=== PATIENT | female | born 1930 | race Caucasian/White ===

== ENCOUNTER 2018-08-30 15:53 | Emergency (ER) | payer MEDICARE, BC ==
[2018-08-30 16:06] VITALS: RESP 18
[2018-08-30] MEDS ORDERED: FUROSEMIDE 10 MG/ML 2 ML VIAL IV STA (17:22)
--- NOTE | 2018-08-30 17:41 | ED ---
General Adult HPI - General Chief complaint: Skin/Abscess/Foreign Body Stated complaint: FLUID RETENTION, POSS AFIB Time Seen by Provider: 08/30/18 16:05 Source: patient, RN notes reviewed Mode of arrival: wheelchair Limitations: physical limitation - History of Present Illness Initial comments: This is a 63-year-old female presents emergency Department complaining of increased edema to her bilateral legs and a slight rash at the sock line and bilateral legs. The rash does not itch is no vesicles it's not raised. Patient states she's been put on Lasix 10 mg daily a few days ago but has noticed no decrease in fluid retention. Patient denies any difficulty breathing shortness of breath or chest pain. Patient denies any fever chills or cough. Patient states she does have a history of atrial fibrillation. Patient denies any abdominal pain she's nausea vomiting diarrhea. Patient denies any calf tenderness. Patient thinks the bilateral rash could be shingles and that is why she came in. - Related Data Home Medications Medication Instructions Recorded Confirmed Apixaban [Eliquis] 2.5 mg PO BID 08/30/18 08/30/18 DULoxetine HCL [Cymbalta] 20 mg PO HS 08/30/18 08/30/18 Diltiazem HCl [Cartia Xt] 180 mg PO DAILY 08/30/18 08/30/18 Furosemide [Lasix] 20 mg PO DAILY PRN 08/30/18 08/30/18 LORazepam [Ativan] 0.25 mg PO Q8H PRN 08/30/18 08/30/18 Labetalol [Trandate] 100 mg PO Q8H 08/30/18 08/30/18 Latanoprost [Xalatan 0.005%] 1 drop BOTH EYES 08/30/18 08/30/18 levETIRAcetam [Keppra] 500 mg PO BID 08/30/18 08/30/18 Allergies Allergy/AdvReac Type Severity Reaction Status Date / Time latex Allergy Unknown Verified 08/30/18 16:56 Sulfa (Sulfonamide Allergy Unknown Verified 08/30/18 16:56 Antibiotics) tetanus and diphtheria Allergy Unknown Verified 08/30/18 16:56 toxoids Review of Systems ROS Statement: Those systems with pertinent positive or pertinent negative responses have been documented in the HPI. ROS Other: All systems not noted in ROS Statement are negative. Past Medical History Past Medical History: Atrial Fibrillation, Hyperlipidemia, Hypertension History of Any Multi-Drug Resistant Organisms: None Reported Past Surgical History: Appendectomy, Section, Hysterectomy Past Psychological History: No Psychological Hx Reported Smoking Status: Never smoker Past Alcohol Use History: None Reported Past Drug Use History: None Reported General Exam - General Exam Comments Initial Comments: GENERAL: Patient is well-developed and well-nourished. Patient is nontoxic and well- hydrated and is in no acute distress. ENT: Neck is soft and supple. No significant lymphadenopathy is noted. Neck has full range of motion without eliciting any pain. EYES: The sclera were anicteric and conjunctiva were pink and moist. Extraocular movements were intact and pupils were equal round and reactive to light. Eyelids were unremarkable. PULMONARY: Unlabored respirations. Good breath sounds bilaterally. No audible rales rhonchi or wheezing was noted. CARDIOVASCULAR: There is a regular rate and rhythm without any murmurs gallops or rubs. ABDOMEN: Soft and nontender with normal bowel sounds. SKIN: Skin is clear with no lesions or rashes and otherwise unremarkable. NEUROLOGIC: Patient is alert and oriented x3. Cranial nerves II through XII are grossly intact. Motor and sensory are also intact. Normal speech, volume and content. Symmetrical smile. MUSCULOSKELETAL: Normal extremities with adequate strength and full range of motion. Patient has 2+ edema bilaterally there is a slight rash on both ankles at the sock line it is flat and it does not orestes it's more typical of some petechiae. LYMPHATICS: No significant lymphadenopathy is noted PSYCHIATRIC: Normal psychiatric evaluation. Limitations: physical limitation Course Vital Signs 08/30/18 08/30/18 16:03 18:37 Temperature 98.4 F Pulse Rate 104 H 98 Respiratory 18 18 Rate Blood Pressure 141/72 168/90 O2 Sat by Pulse 99 98 Oximetry Medical Decision Making - Medical Decision Making EKG shows atrial fibrillation with rapid ventricular response at 106 bpm QRS 110 QT interval 372 QTC is 494. Patient's EKG shows no ST segment elevation however there is some ST segment depression in V5 and V6. Patient's chest x-ray shows a little cephalization. Possibly early pulmonary edema. However patient has no complaint of difficulty breathing even with exertion. Patient's heart rate during the patient's stay has been between 90 and 110 patient denies any shortness of breath chest pain or palpitations. - Lab Data Result diagrams: 08/30/18 17:40 08/30/18 17:40 Lab Results 08/30/18 08/30/18 08/30/18 Range/Units 17:40 17:40 17:40 WBC 7.3 (3.8-10.6) k/uL RBC 3.88 (3.80-5.40) m/uL Hgb 11.3 L (11.4-16.0) gm/dL Hct 34.6 (34.0-46.0) % MCV 89.1 (80.0-100.0) fL MCH 29.1 (25.0-35.0) pg MCHC 32.6 (31.0-37.0) g/dL RDW 13.6 (11.5-15.5) % Plt Count 225 (150-450) k/uL Neutrophils % 61 % Lymphocytes % 24 % Monocytes % 8 % Eosinophils % 3 % Basophils % 1 % Neutrophils # 4.4 (1.3-7.7) k/uL Lymphocytes # 1.8 (1.0-4.8) k/uL Monocytes # 0.6 (0-1.0) k/uL Eosinophils # 0.2 (0-0.7) k/uL Basophils # 0.0 (0-0.2) k/uL PT (9.0-12.0) sec INR (<1.2) APTT (22.0-30.0) sec Sodium 138 (137-145) mmol/L Potassium 3.9 (3.5-5.1) mmol/L Chloride 106 (98-107) mmol/L Carbon Dioxide 22 (22-30) mmol/L Anion Gap 10 mmol/L BUN 19 H (7-17) mg/dL Creatinine 0.66 (0.52-1.04) mg/dL Est GFR (CKD-EPI)AfAm >90 (>60 ml/min/1.73 sqM) Est GFR (CKD-EPI)NonAf 80 (>60 ml/min/1.73 sqM) Glucose 102 H (74-99) mg/dL Calcium 9.6 (8.4-10.2) mg/dL Magnesium 1.9 (1.6-2.3) mg/dL Total Bilirubin 0.7 (0.2-1.3) mg/dL AST 29 (14-36) U/L ALT 40 (9-52) U/L Alkaline Phosphatase 123 (38-126) U/L Total Creatine Kinase 83 (30-135) U/L CK-MB (CK-2) 1.4 (0.0-2.4) ng/mL CK-MB (CK-2) Rel Index 1.7 Troponin I <0.012 (0.000-0.034) ng/mL NT-Pro-B Natriuret Pep pg/mL Total Protein 6.9 (6.3-8.2) g/dL Albumin 4.0 (3.5-5.0) g/dL 08/30/18 08/30/18 Range/Units 17:40 17:40 WBC (3.8-10.6) k/uL RBC (3.80-5.40) m/uL Hgb (11.4-16.0) gm/dL Hct (34.0-46.0) % MCV (80.0-100.0) fL MCH (25.0-35.0) pg MCHC (31.0-37.0) g/dL RDW (11.5-15.5) % Plt Count (150-450) k/uL Neutrophils % % Lymphocytes % % Monocytes % % Eosinophils % % Basophils % % Neutrophils # (1.3-7.7) k/uL Lymphocytes # (1.0-4.8) k/uL Monocytes # (0-1.0) k/uL Eosinophils # (0-0.7) k/uL Basophils # (0-0.2) k/uL PT 10.6 (9.0-12.0) sec INR 1.0 (<1.2) APTT 25.2 (22.0-30.0) sec Sodium (137-145) mmol/L Potassium (3.5-5.1) mmol/L Chloride (98-107) mmol/L Carbon Dioxide (22-30) mmol/L Anion Gap mmol/L BUN (7-17) mg/dL Creatinine (0.52-1.04) mg/dL Est GFR (CKD-EPI)AfAm (>60 ml/min/1.73 sqM) Est GFR (CKD-EPI)NonAf (>60 ml/min/1.73 sqM) Glucose (74-99) mg/dL Calcium (8.4-10.2) mg/dL Magnesium (1.6-2.3) mg/dL Total Bilirubin (0.2-1.3) mg/dL AST (14-36) U/L ALT (9-52) U/L Alkaline Phosphatase (38-126) U/L Total Creatine Kinase (30-135) U/L CK-MB (CK-2) (0.0-2.4) ng/mL CK-MB (CK-2) Rel Index Troponin I (0.000-0.034) ng/mL NT-Pro-B Natriuret Pep 2120 pg/mL Total Protein (6.3-8.2) g/dL Albumin (3.5-5.0) g/dL Disposition Clinical Impression: Peripheral edema Disposition: HOME SELF-CARE Condition: Good Instructions: Leg Edema (ED) Additional Instructions: Patient should start taking Lasix 20 mg in the morning patient needs to follow- up with her primary medical care doctor. Is patient prescribed a controlled substance at d/c from ED?: No Referrals: Timmy Yeager MD [Primary Care Provider] - 1-2 days
[2018-08-30 18:06] LABS: Basophils % (A) 1 %; Eosinophils # (A) 0.2 k/uL (0-0.7); Eosinophils % (A) 3 %; HCT 34.6 % (34.0-46.0); HGB 11.3 gm/dL (11.4-16.0); Lymphocytes # (A) 1.8 k/uL (1.0-4.8); Lymphocytes % (A) 24 %; MCH 29.1 pg (25.0-35.0); MCHC 32.6 g/dL (31.0-37.0); MCV 89.1 fL (80.0-100.0); Mean Platelet Volume 7.4; Monocytes # (A) 0.6 k/uL (0-1.0); Monocytes % (A) 8 %; Neutrophils # (A) 4.4 k/uL (1.3-7.7); Neutrophils % (A) 61 %; Platelet Count 225 k/uL (150-450); RBC 3.88 m/uL (3.80-5.40); RDW 13.6 % (11.5-15.5); WBC 7.3 k/uL (3.8-10.6)
[2018-08-30 18:18] LABS: Partial Thromboplastin Time 25.2 sec (22.0-30.0); Prothrombin Time 10.6 sec (9.0-12.0)
[2018-08-30 18:25] LABS: Creatine Kinase 83 U/L (30-135)
[2018-08-30 18:27] LABS: ALT 40 U/L (9-52); AST 29 U/L (14-36); Alkaline Phosphatase 123 U/L (38-126); Anion Gap 10 mmol/L; Blood Urea Nitrogen 19 mg/dL (7-17); Calcium 9.6 mg/dL (8.4-10.2); Carbon Dioxide 22 mmol/L (22-30); Chloride 106 mmol/L (98-107); Glucose 102 mg/dL (74-99); Magnesium 1.9 mg/dL (1.6-2.3); Potassium 3.9 mmol/L (3.5-5.1); Sodium 138 mmol/L (137-145); Total Bilirubin 0.7 mg/dL (0.2-1.3); Total Protein 6.9 g/dL (6.3-8.2)
[2018-08-30 18:37] LABS: Creatine Kinase MB 1.4 ng/mL (0.0-2.4); Troponin I <0.012 ng/mL (0.000-0.034)
--- NOTE | 2018-08-30 20:00 | XR ---
EXAMINATION: XR chest 2V DATE AND TIME: 08/30/2018 6:12 PM CLINICAL INDICATION: PHH; Chest Pain TECHNIQUE: Departmental protocol COMPARISON: None FINDINGS: The lungs show a reticular pattern of increased density throughout the lungs which mildly silhouettes the pulmonary vasculature. This suggests a clinical possibility of mild interstitial phase pulmonary edema. If not present clinically, then the pattern likely represents chronic interstitial lung peacock e. The pleural spaces are positive for a very small right pleural effusion. The cardiac silhouette is moderately enlarged. The remainder of the mediastinal silhouette is unremar kable. The skeletal structures and soft tissues are negative for acute findings. IMPRESSION: NO DEFINITE ACUTE PROCESS, BUT PULMONARY COMMENTS ABOVE.
[2018-08-30 20:27] VITALS: BP 149/87; PULSE 110; TEMP 98.6
== END 2018-08-30 20:27 | disposition home or self-care (01) ==
LOC: EC 15:53
DX: R60.0 Localized edema (principal); R21 Rash and other nonspecific skin eruption; I48.91 Unspecified atrial fibrillation; I10 Essential (primary) hypertension; Z79.01 Long term (current) use of anticoagulants; Z79.899 Other long term (current) drug therapy; Z91.040 Latex allergy status; Z88.2 Allergy status to sulfonamides; Z88.7 Allergy status to serum and vaccine
CPT/HCPCS: 36415; 93005; 83880; 80053; 82550; 82553; 83735; 84484; 85025; 85610; 85730; 71046; 99284; 96374; J1940

== ENCOUNTER 2018-11-25 14:07 | Inpatient (IN) | payer MEDICARE, BC ==
[2018-11-25] MEDS ORDERED: SODIUM CHLORIDE 0.9% 500 ML 500 ML IV ONE ×2 (14:26→15:30)
--- NOTE | 2018-11-25 14:28 | ED ---
General Adult HPI - General Chief complaint: Weakness Stated complaint: Weakness Time Seen by Provider: 11/25/18 14:12 Source: patient, EMS, RN notes reviewed, old records reviewed Mode of arrival: EMS Limitations: no limitations - History of Present Illness Initial comments: 32 sexual female presenting with generalized weakness from home. Patient states she was trying to get into the shower, she slipped from her chair and injured her left shoulder. She was unable to ambulate after this fall secondary to generalized weakness. She has previous history of intracranial hemorrhage, atrial fibrillation. Denies head or neck trauma. Denies any chest pain or dyspnea. She does report palpitations and racing heart. Denies abdominal pain nausea or vomiting. Denies fever. Denies dysuria but does report increased urinary frequency. - Related Data Home Medications Medication Instructions Recorded Confirmed Apixaban [Eliquis] 2.5 mg PO BID 08/30/18 11/25/18 Diltiazem HCl [Cartia Xt] 180 mg PO DAILY 08/30/18 11/25/18 Furosemide [Lasix] 40 mg PO DAILY 08/30/18 11/25/18 Labetalol [Trandate] 100 mg PO Q8H 08/30/18 11/25/18 levETIRAcetam [Keppra] 500 mg PO BID 08/30/18 11/25/18 Primidone [Mysoline] 50 mg PO BID 11/25/18 11/25/18 Allergies Allergy/AdvReac Type Severity Reaction Status Date / Time latex Allergy Unknown Verified 11/25/18 15:06 Sulfa (Sulfonamide Allergy Unknown Verified 11/25/18 15:06 Antibiotics) tetanus and diphtheria Allergy Unknown Verified 11/25/18 15:06 toxoids Review of Systems ROS Statement: Those systems with pertinent positive or pertinent negative responses have been documented in the HPI. ROS Other: All systems not noted in ROS Statement are negative. Past Medical History Past Medical History: Atrial Fibrillation, CVA/TIA, Hyperlipidemia, Hypertension History of Any Multi-Drug Resistant Organisms: None Reported Past Surgical History: Appendectomy, Section, Hysterectomy Past Psychological History: No Psychological Hx Reported Smoking Status: Never smoker Past Alcohol Use History: None Reported Past Drug Use History: None Reported General Exam Limitations: no limitations General appearance: alert, in no apparent distress Head exam: Present: atraumatic, normocephalic Eye exam: Present: normal appearance ENT exam: Present: mucous membranes dry Neck exam: Present: normal inspection. Absent: tenderness, meningismus Respiratory exam: Present: normal lung sounds bilaterally. Absent: respiratory distress, wheezes Cardiovascular Exam: Present: tachycardia, irregular rhythm GI/Abdominal exam: Present: soft. Absent: distended, tenderness, guarding Extremities exam: Present: full ROM, tenderness (Left shoulder, hematoma) Neurological exam: Present: alert, oriented X3, CN II-XII intact. Absent: motor sensory deficit Psychiatric exam: Present: normal affect, normal mood Skin exam: Present: warm, dry, intact. Absent: cyanosis, diaphoretic Course Vital Signs 11/25/18 11/25/18 14:09 15:53 Temperature 98.8 F Pulse Rate 131 H 105 H Respiratory 20 16 Rate Blood Pressure 124/91 114/91 O2 Sat by Pulse 92 L 95 Oximetry EKG Findings - EKG Comments: EKG Findings:: EKG: Atrial fibrillation with RVR, left extremity deviation, LVH, rate of 123, QRS duration 110, QTC 501, no ST segment elevation, ST segment depression in the lateral precordium. Medical Decision Making - Medical Decision Making 88-year-old female presenting with generalized weakness, fall with minor shoulder injury. Patient is found to be in A. fib with a rapid ventricular response, she does have history of atrial fibrillation. Workup reveals normal CBC, normal CMP, normal lactic acid, urinalysis shows 1+ ketones consistent with dehydration and exam findings. Suspect atrial fibrillation is related to dehydration. 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 Chest x-ray shows COPD no focal pneumonia. Patient's given IV hydration, this does improve her heart rate. She is in rate controlled A. fib on reevaluation. She will be admitted for further evaluation treatment. Case discussed with Dr. Davis, will admit. - Lab Data Result diagrams: 11/25/18 14:16 11/25/18 14:16 Lab Results 11/25/18 11/25/18 11/25/18 Range/Units 14:16 14:16 14:16 WBC 9.6 (3.8-10.6) k/uL RBC 4.52 (3.80-5.40) m/uL Hgb 12.3 (11.4-16.0) gm/dL Hct 37.7 (34.0-46.0) % MCV 83.6 (80.0-100.0) fL MCH 27.3 (25.0-35.0) pg MCHC 32.6 (31.0-37.0) g/dL RDW 15.7 H (11.5-15.5) % Plt Count 214 (150-450) k/uL Neutrophils % 84 % Lymphocytes % 10 % Monocytes % 5 % Eosinophils % 1 % Basophils % 0 % Neutrophils # 8.0 H (1.3-7.7) k/uL Lymphocytes # 0.9 L (1.0-4.8) k/uL Monocytes # 0.5 (0-1.0) k/uL Eosinophils # 0.1 (0-0.7) k/uL Basophils # 0.0 (0-0.2) k/uL PT 10.5 (9.0-12.0) sec INR 1.0 (<1.2) APTT 23.0 (22.0-30.0) sec Sodium 139 (137-145) mmol/L Potassium 4.3 (3.5-5.1) mmol/L Chloride 105 (98-107) mmol/L Carbon Dioxide 24 (22-30) mmol/L Anion Gap 10 mmol/L BUN 19 H (7-17) mg/dL Creatinine 0.57 (0.52-1.04) mg/dL Est GFR (CKD-EPI)AfAm >90 (>60 ml/min/1.73 sqM) Est GFR (CKD-EPI)NonAf 84 (>60 ml/min/1.73 sqM) Glucose 113 H (74-99) mg/dL Plasma Lactic Acid Robert (0.7-2.0) mmol/L Calcium 9.9 (8.4-10.2) mg/dL Magnesium 1.9 (1.6-2.3) mg/dL Total Bilirubin 0.8 (0.2-1.3) mg/dL AST 25 (14-36) U/L ALT 36 (9-52) U/L Alkaline Phosphatase 104 (38-126) U/L Creatine Kinase 68 (30-135) U/L Troponin I (0.000-0.034) ng/mL Total Protein 6.8 (6.3-8.2) g/dL Albumin 3.9 (3.5-5.0) g/dL Urine Color Urine Appearance (Clear) Urine pH (5.0-8.0) Ur Specific [place] (1.001-1.035) Urine Protein (Negative) Urine Glucose (UA) (Negative) Urine Ketones (Negative) Urine Blood (Negative) Urine Nitrite (Negative) Urine Bilirubin (Negative) Urine Urobilinogen (<2.0) mg/dL Ur Leukocyte Esterase (Negative) 11/25/18 11/25/18 11/25/18 Range/Units 14:16 14:16 15:51 WBC (3.8-10.6) k/uL RBC (3.80-5.40) m/uL Hgb (11.4-16.0) gm/dL Hct (34.0-46.0) % MCV (80.0-100.0) fL MCH (25.0-35.0) pg MCHC (31.0-37.0) g/dL RDW (11.5-15.5) % Plt Count (150-450) k/uL Neutrophils % % Lymphocytes % % Monocytes % % Eosinophils % % Basophils % % Neutrophils # (1.3-7.7) k/uL Lymphocytes # (1.0-4.8) k/uL Monocytes # (0-1.0) k/uL Eosinophils # (0-0.7) k/uL Basophils # (0-0.2) k/uL PT (9.0-12.0) sec INR (<1.2) APTT (22.0-30.0) sec Sodium (137-145) mmol/L Potassium (3.5-5.1) mmol/L Chloride (98-107) mmol/L Carbon Dioxide (22-30) mmol/L Anion Gap mmol/L BUN (7-17) mg/dL Creatinine (0.52-1.04) mg/dL Est GFR (CKD-EPI)AfAm (>60 ml/min/1.73 sqM) Est GFR (CKD-EPI)NonAf (>60 ml/min/1.73 sqM) Glucose (74-99) mg/dL Plasma Lactic Acid Robert 1.4 (0.7-2.0) mmol/L Calcium (8.4-10.2) mg/dL Magnesium (1.6-2.3) mg/dL Total Bilirubin (0.2-1.3) mg/dL AST (14-36) U/L ALT (9-52) U/L Alkaline Phosphatase (38-126) U/L Creatine Kinase (30-135) U/L Troponin I 0.014 (0.000-0.034) ng/mL Total Protein (6.3-8.2) g/dL Albumin (3.5-5.0) g/dL Urine Color Yellow Urine Appearance Clear (Clear) Urine pH 7.0 (5.0-8.0) Ur Specific [place] 1.014 (1.001-1.035) Urine Protein Negative (Negative) Urine Glucose (UA) Negative (Negative) Urine Ketones 1+ H (Negative) Urine Blood Negative (Negative) Urine Nitrite Negative (Negative) Urine Bilirubin Negative (Negative) Urine Urobilinogen <2.0 (<2.0) mg/dL Ur Leukocyte Esterase Negative (Negative) Disposition Clinical Impression: Dehydration, Atrial fibrillation with RVR, General weakness Disposition: ADMITTED IP TO THIS [facility] Condition: Stable Is patient prescribed a controlled substance at d/c from ED?: No Referrals: Timmy Yeager MD [Primary Care Provider] - 1-2 days Decision to Admit Reason: Admit from EC Decision Date: 11/25/18 Decision Time: 16:48
[2018-11-25 14:54] LABS: Basophils % (A) 0 %; Eosinophils # (A) 0.1 k/uL (0-0.7); Eosinophils % (A) 1 %; HCT 37.7 % (34.0-46.0); HGB 12.3 gm/dL (11.4-16.0); Lymphocytes # (A) 0.9 k/uL (1.0-4.8); Lymphocytes % (A) 10 %; MCH 27.3 pg (25.0-35.0); MCHC 32.6 g/dL (31.0-37.0); MCV 83.6 fL (80.0-100.0); Mean Platelet Volume 9.1; Monocytes # (A) 0.5 k/uL (0-1.0); Monocytes % (A) 5 %; Neutrophils % (A) 84 %; Platelet Count 214 k/uL (150-450); RBC 4.52 m/uL (3.80-5.40); RDW 15.7 % (11.5-15.5); WBC 9.6 k/uL (3.8-10.6)
[2018-11-25 15:05] LABS: ALT 36 U/L (9-52); AST 25 U/L (14-36); Albumin 3.9 g/dL (3.5-5.0); Alkaline Phosphatase 104 U/L (38-126); Anion Gap 10 mmol/L; Blood Urea Nitrogen 19 mg/dL (7-17); Calcium 9.9 mg/dL (8.4-10.2); Carbon Dioxide 24 mmol/L (22-30); Chloride 105 mmol/L (98-107); Creatine Kinase 68 U/L (30-135); Glucose 113 mg/dL (74-99); Magnesium 1.9 mg/dL (1.6-2.3); Potassium 4.3 mmol/L (3.5-5.1); Sodium 139 mmol/L (137-145); Total Bilirubin 0.8 mg/dL (0.2-1.3); Total Protein 6.8 g/dL (6.3-8.2)
[2018-11-25 15:07] LABS: Prothrombin Time 10.5 sec (9.0-12.0)
--- NOTE | 2018-11-25 15:23 | XR ---
EXAMINATION TYPE: XR chest 2V DATE OF EXAM: 11/25/2018 COMPARISON: 08/30/2018 TECHNIQUE: PA and lateral views submitted. HISTORY: Pain FINDINGS: Hyperinflation the lungs are seen with biapical pleural thickening and degenerative change spine. The heart is enlarged. Coarsened interstitium is stable. No pneumothorax or pleural effusion. IMPRESSION: 1. 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 Biapical pleural thickening stable.
--- NOTE | 2018-11-25 15:24 | XR ---
EXAMINATION TYPE: XR shoulder complete LT DATE OF EXAM: 11/25/2018 COMPARISON: NONE HISTORY: Pain TECHNIQUE: Three views are submitted. FINDINGS: The osseous structures are intact. There is no acute fracture or dislocation. The AC joint is maint ained. Diffuse osteopenia and left apical pleural thickening. IMPRESSION: 1. No acute process.
--- NOTE | 2018-11-25 15:26 | CT ---
EXAMINATION TYPE: CT brain kulwinder wo con DATE OF EXAM: 11/25/2018 COMPARISON: Weakness, fall HISTORY: Weakness. Fall. CT DLP: 1221.3 mGycm, Automated exposure control for dose reduction was used. CONTRAST: Patient injected with 0 mL of Isovue 300. CT of the brain is performed utilizing 3 mm thick sections through the posterior fossa and 3 mm thick sections through the remaining calvarium. Study is performed within 24 hours of arrival to the hospital. No abnormal hyperdensity is present to suggest an acute intracranial hemorrhage. No mass lesion is evident. No acute infarcts are evident. There may be an old infarct through the right occipital lobe. Some mi ld periventricular white matter hypodensity, likely on the basis of chronic white matters. Ventricles and sulci are appropriate for the patient age. There is a hypodense area within the left cerebellar pontine angle likely is an arachnoid cyst. Paranasal sinuses and mastoid air cells within the [id number] are clear. IMPRESSIONS: 1. Old right occipital lobe infarct. 2. 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 Old infarct could be considered. 3. Right ventricular white matter ischemic type changes. CT cervical spine. COMPARISON: None CT of the cervical spine is performed in the axial plane at 2 mm thick sections. Reconstructed image s in the coronal, and sagittal plane are reviewed on the computer. No acute fractures are evident. Vertebral body alignment is normal. Posterior spinal lamellar line is intact. There is some posterior disc space narrowing present C5-6 C6-7. Vertebral body heights are preserved. No spinal canal stenosis is evident. No neural foraminal stenosis is evident. Bilateral apical thickening likely related to scarring is present. IMPRESSIONS: 1. No acute osseous abnormality. 2. Mild degenerative disc changes posterior lower cervical spine.
[2018-11-25] MEDS: SODIUM CHLORIDE 0.9% 1,000 ML IV SCH (15:40)
[2018-11-25 16:14] LABS: Appearance,Urine Clear (Clear); Bilirubin,Urine Negative (Negative); Blood,Urine Negative (Negative); Color,Urine Yellow; Glucose,Urine (UA) Negative (Negative); Ketones,Urine 1+ (Negative); Leukocyte Esterase,Urine Negative (Negative); Nitrite,Urine Negative (Negative); Protein,Urine Negative (Negative); Specific Gravity,Urine 1.014 (1.001-1.035); Urobilinogen,Urine <2.0 mg/dL (<2.0)
[2018-11-25] MEDS ORDERED: NALOXONE 0.4 MG/ML 1 ML VIAL IV PRN (16:44)
[2018-11-25] MEDS ORDERED: ACETAMINOPHEN TAB 325 MG TAB PO PRN (16:44)
[2018-11-25] MEDS ORDERED: LORazepam 2 MG/ML INJ IV STA (17:29)
[2018-11-25] MEDS: LABETALOL 100 MG TAB PO SCH ×2 (19:29→19:30)
--- NOTE | 2018-11-25 23:06 | P.HPIM ---
History of Present Illness H&P Date: 11/25/18 Chief Complaint: Fall. 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 Patient was trying to get into changed and slipped to the side of chair and stayed there for an hour. Patient did have some bruise on the left shoulder and arm. Patient was unable to get up due to generalized weakness and finally was able to call EMS. Patient does have a history of CVA 2. Most recent was in March 2018. Patient does have tremors of the upper and lower extremities, left side since then. Patient does take labetalol for blood pressure. Patient is also on seizure medications at home. Otherwise patient denied any recent illnesses. No fever no chills. No cough or sputum production. No dysuria or hematuria. Denied any increased urinary frequency. Denied any abdominal pain. No nausea vomiting or diarrhea. Denied any chest pain or shortness of breath or dizziness. Patient was found to be in atrial fibrillation with RVR on admission. UA negative. BUN 19 on admission Review of Systems Constitutional: Patient denies any fever or chills . Patient does have generalized weakness. No weight loss. loss. Abdomen: Patient denied nausea vomiting and diarrhea and abdominal pain. Cardiovascular: Patient denies any chest pain or short of breath no palpita tions. Respiratory: patient denied any cough is from production. No shortness of breath Neurologic: Patient denied any numbness or tingling headache. Musculoskeletal: Patient denies any complaints of joint swelling or deformity. Skin: Negative Psychiatric: Negative Endocrine: No heat or cold intolerance. No recent weight gain. Genitourinary: No dysuria or hematuria. All other 14 point ROS negative except the above Past Medical History Past Medical History: Atrial Fibrillation, CVA/TIA, Hyperlipidemia, Hypertension History of Any Multi-Drug Resistant Organisms: None Reported Past Surgical History: Appendectomy, Section, Hysterectomy Past Psychological History: No Psychological Hx Reported Smoking Status: Never smoker Past Alcohol Use History: None Reported Past Drug Use History: None Reported Medications and Allergies Home Medications Medication Instructions Recorded Confirmed Type Apixaban [Eliquis] 2.5 mg PO BID 08/30/18 11/25/18 History Diltiazem HCl [Cartia Xt] 180 mg PO DAILY 08/30/18 11/25/18 History Furosemide [Lasix] 40 mg PO DAILY 08/30/18 11/25/18 History Labetalol [Trandate] 100 mg PO Q8H 08/30/18 11/25/18 History levETIRAcetam [Keppra] 500 mg PO BID 08/30/18 11/25/18 History Primidone [Mysoline] 50 mg PO BID 11/25/18 11/25/18 History Allergies Allergy/AdvReac Type Severity Reaction Status Date / Time latex Allergy Unknown Verified 11/25/18 15:06 Sulfa (Sulfonamide Allergy Unknown Verified 11/25/18 15:06 Antibiotics) tetanus and diphtheria Allergy Unknown Verified 11/25/18 15:06 toxoids Physical Exam Vitals: Vital Signs Temp Pulse Resp BP Pulse Ox 11/25/18 21:29 97.0 F L 94 18 127/78 11/25/18 19:16 97.8 F 112 H 18 128/92 95 11/25/18 18:22 120 H 16 147/87 98 11/25/18 16:46 111 H 16 155/94 98 11/25/18 15:53 105 H 16 114/91 95 11/25/18 14:09 98.8 F 131 H 20 124/91 92 L Intake and Output 11/25/18 11/25/18 11/25/18 06:59 14:59 22:59 Other: Weight 48.988 kg PHYSICAL EXAMINATION: Patient is lying in the bed comfortably, no acute distress, awake alert and oriented.. HEENT: Normocephalic. Neck is supple. Pupils reactive. Nostrils clear. Oral cavity is moist. Ears reveal no drainage. Neck reveals no JVD, carotid bruits, or thyromegaly. CHEST EXAMINATION: Trachea is central. Symmetrical expansion. Bibasilar diminished air entry. Lung reynolds clear to auscultation and percussion. CARDIAC: Normal S1, S2 with no gallops. No murmurs . Irregularly irregular rhythm. ABDOMEN: Soft. Bowel sounds normal. No organomegaly. No abdominal bruits. Extremities: reveal no edema. No clubbing or cyanosis Neurologically awake, alert, oriented x3 . Left-sided weakness and tremors.. Skin: No rash or skin lesions. Psychiatric: Coperative. Nonsuicidal Musculoskeletal: No joint swelling or deformity. Normal range of motion. Results CBC & Chem 7: 11/25/18 14:16 11/25/18 14:16 Labs: Abnormal Lab Results - Last 24 Hours (Table) 11/25/18 11/25/18 11/25/18 Range/Units 14:16 14:16 15:51 RDW 15.7 H (11.5-15.5) % Neutrophils # 8.0 H (1.3-7.7) k/uL Lymphocytes # 0.9 L (1.0-4.8) k/uL BUN 19 H (7-17) mg/dL Glucose 113 H (74-99) mg/dL Urine Ketones 1+ H (Negative) Thrombosis Risk Factor Assmnt - DVT/VTE Prophylaxis DVT/VTE Prophylaxis: Pharmacologic Prophylaxis ordered Assessment and Plan Assessment: Generalized weakness and fall bruising on the left shoulder and hand. Atrial fibrillation with rapid ventricular rate. Chronic atrial fibrillation on anticoagulation with Eliquis Mild dehydration History of CVA with left-sided weakness and tremors History of hemorrhagic CVA Hypertension Hyponatremia DVT prophylaxis. Patient is already on full anticoagulation Plan: Patient will be continued on telemetry monitoring. Patient was given fluid bolus and continue with normal saline at 75 mL per hour and monitor fluid status closely. Continue with home blood pressure medications including propranolol. Heart rate is trending down. Start back on Eliquis and antiepileptic medications which she is on at home. Cardiology was consulted for further evaluation. Prognosis is guarded. will consult PTOT. Time with Patient: Greater than 30
[2018-11-26] MEDS: APIXABAN 2.5 MG TABLET PO SCH ×3 (00:20→21:21)
[2018-11-26] MEDS: ALPRAZolam 0.25 MG TAB PO PRN ×2 (00:20→17:11)
[2018-11-26] MEDS: levETIRAcetam 500 MG TAB PO SCH ×3 (00:20→21:21)
[2018-11-26] MEDS: DILTIAZEM CD 180 MG CAP.ER.24H PO SCH (09:40)
[2018-11-26] MEDS: LABETALOL 100 MG TAB PO SCH ×3 (09:40→23:29)
[2018-11-26] MEDS: PRIMIDONE 50 MG TAB PO SCH ×2 (09:41→21:21)
[2018-11-26 10:24] VITALS: BMI 21.0
[2018-11-26] MEDS: SODIUM CHLORIDE 0.9% 1,000 ML IV SCH ×2 (17:15→21:21)
[2018-11-26] MEDS ORDERED: ALPRAZolam 0.5 MG TAB PO STA (21:08)
--- NOTE | 2018-11-27 01:35 | P.PN ---
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 Patient was trying to get into changed and slipped to the side of chair and stayed there for an hour. Patient did have some bruise on the left shoulder and arm. Patient was unable to get up due to generalized weakness and finally was able to call EMS. Patient does have a history of CVA 2. Most recent was in March 2018. Patient does have tremors of the upper and lower extremities, left side since then. Patient does take labetalol for blood pressure. Patient is also on seizure medications at home. Otherwise patient denied any recent illnesses. No fever no chills. No cough or sputum production. No dysuria or hematuria. Denied any increased urinary frequency. Denied any abdominal pain. No nausea vomiting or diarrhea. Denied any chest pain or shortness of breath or dizziness. Patient was found to be in atrial fibrillation with RVR on admission. UA negative. BUN 19 on admission 11/26/2018 Patient denied any complaints of chest pain or shortness of breath today. Heart rate is better controlled. Currently on gentle hydration. Tolerating oral diet. Otherwise patient has generalized weakness and unable to ambulate without support. PT OT will be consulted and possible rehab transfer. Current medications reviewed. Objective - Vital Signs Vital signs: Vital Signs Temp 98.6 F 11/26/18 23:28 Pulse 90 11/26/18 23:28 Resp 15 11/26/18 23:28 BP 143/79 11/26/18 23:28 Pulse Ox 92 L 11/26/18 23:28 Intake & Output 11/26/18 11/26/18 11/27/18 06:59 18:59 06:59 Intake Total 400 Output Total 200 Balance 200 Weight 54 kg 54 kg Intake: Oral 400 Output: Urine 200 Other: Voiding Method Bedpan Bedside Commode Bedside Commode # Voids 1 2 1 # Bowel Movements 0 - Exam PHYSICAL EXAMINATION: Patient is lying in the bed comfortably, no acute distress, awake alert and oriented.. HEENT: Normocephalic. Neck is supple. Pupils reactive. Nostrils clear. Oral cavity is moist. Ears reveal no drainage. Neck reveals no JVD, carotid bruits, or thyromegaly. CHEST EXAMINATION: Trachea is central. Symmetrical expansion. Bibasilar diminished air entry. Lung reynolds clear to auscultation and percussion. CARDIAC: Normal S1, S2 with no gallops. No murmurs . Irregularly irregular rhythm. ABDOMEN: Soft. Bowel sounds normal. No organomegaly. No abdominal bruits. Extremities: reveal no edema. No clubbing or cyanosis Neurologically awake, alert, oriented x3 . Left-sided weakness and tremors.. Skin: No rash or skin lesions. Psychiatric: Coperative. Nonsuicidal Musculoskeletal: No joint swelling or deformity. Normal range of motion. - Labs CBC & Chem 7: 11/25/18 14:16 11/25/18 14:16 Labs: Microbiology - Last 24 Hours (Table) 11/25/18 15:51 Urine Culture - Final Urine,Voided 11/25/18 14:16 Blood Culture - Preliminary Blood No Growth after 24 hours Assessment and Plan Assessment: Generalized weakness and fall bruising on the left shoulder and hand. Atrial fibrillation with rapid ventricular rate. Rate controlled now. Chronic atrial fibrillation on anticoagulation with Eliquis Mild dehydration History of CVA with left-sided weakness and tremors History of hemorrhagic CVA Hypertension Hyponatremia DVT prophylaxis. Patient is already on full anticoagulation Plan: Patient will be continued on telemetry monitoring. Patient was given fluid bolus and continue with normal saline at 75 mL per hour and monitor fluid status closely. Continue with home blood pressure medications including propranolol. Heart rate is controlled now. Started back on Eliquis and antiepileptic medications which she is on at home. Cardiology was consulted for further evaluation. Prognosis is guarded. Consulted PTOT. Time with Patient: Greater than 30
[2018-11-27 07:11] LABS: Anisocytosis Slight; Basophils % (A) 0 %; Eosinophils # (A) 0.2 k/uL (0-0.7); Eosinophils % (A) 3 %; HCT 36.9 % (34.0-46.0); HGB 11.7 gm/dL (11.4-16.0); Hypochromasia Slight; Lymphocytes # (A) 1.5 k/uL (1.0-4.8); Lymphocytes % (A) 28 %; MCH 26.8 pg (25.0-35.0); MCHC 31.8 g/dL (31.0-37.0); MCV 84.4 fL (80.0-100.0); Monocytes # (A) 0.5 k/uL (0-1.0); Monocytes % (A) 9 %; Neutrophils # (A) 3.1 k/uL (1.3-7.7); Neutrophils % (A) 58 %; Platelet Count 173 k/uL (150-450); RBC 4.37 m/uL (3.80-5.40); RDW 16.7 % (11.5-15.5); WBC 5.4 k/uL (3.8-10.6)
[2018-11-27 07:24] LABS: Anion Gap 5 mmol/L; Blood Urea Nitrogen 13 mg/dL (7-17); Calcium 8.9 mg/dL (8.4-10.2); Carbon Dioxide 23 mmol/L (22-30); Chloride 110 mmol/L (98-107); Glucose 86 mg/dL (74-99); Potassium 4.1 mmol/L (3.5-5.1); Sodium 138 mmol/L (137-145)
--- NOTE | 2018-11-27 07:59 | P.CRDCN ---
History of Present Illness Consult date: 11/27/18 Consult reason: atrial fibrillation History of present illness: IMPRESSION / ASSESSMENT: Chronic atrial fibrillation Hypertension Hyperlipidemia CVA 2 with left-sided weakness and tremors PLAN: Continue diltiazem XT 80 mg daily, eliquis 2.5 mg twice daily. Continue labetalol 100 mg 3 times daily. Continue cardiac monitoring. HPI This is an 88-year-old female with past medical history of atrial fibrillation on eliquis, history of hemorrhagic CVA 2 with left-sided weakness and tremors, hypertension, hyperlipidemia. 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 Patient was brought in to [facility] emergency center for generalized weakness. Patient states that she was in her chair and did not have any traction was trying to get up and ended up sliding to the floor and was in able to get herself up from the floor. Patient presented with A. fib and RVR. Patient denies missing any of her medications. She denies feeling any chest pain, shortness of breath, palpitations. She denies any lower extremity edema. The patient has remained in atrial fibrillation with controlled response through the night. ROS: No fever chills or rigors, no cough, phlegm or expectoration, no nausea, vomiting or diarrhea, no hematuria, dysuria, no musculoskeletal complaints, no strokes or seizures, no skin lesions. EXAMINATION: Gen: This is an 88-year-old female. She is resting in bed appears to be comfortable and in no acute distress. Vital signs: Afebrile, blood pressure 154/79, pulse ox 95% on room air, heart rate between 69 and 90. HEENT: Head is atraumatic, normocephalic. Pupils equal, round. Sclerae is anicteric. NECK: Supple. No JVD. No lymphadenopathy. No thyromegaly. LUNGS: Clear to auscultation. No wheezes or rhonchi. No intercostal retractions. HEART: Irregular rate and rhythm. No murmur. ABDOMEN: Soft. Bowel sounds are present. No masses. No tenderness. EXTREMITIES: Trace bilateral pedal edema. No calf tenderness. NEUROLOGICAL: Patient is awake, alert and oriented x3. Cranial nerves 2 through 12 are grossly intact. REVIEW OF LABS, ECG & MEDICAL DATA EKG is atrial fibrillation with RVR at a rate of 123. 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 Biapical pleural thickening stable. CBC essentially normal, BUN 13 and creatinine 0.48, potassium 4.1. Urinalysis negative. TSH 1.570 Nurse practitioner note has been reviewed, I agree with documented findings and plan of care. Patient was seen and examined. Past Medical History Past Medical History: Atrial Fibrillation, CVA/TIA, Hyperlipidemia, Hypertension Additional Past Medical History / Comment(s): "brain bleed" History of Any Multi-Drug Resistant Organisms: None Reported Past Surgical History: Appendectomy, Section, Hysterectomy Past Psychological History: No Psychological Hx Reported Smoking Status: Never smoker Past Alcohol Use History: None Reported Past Drug Use History: None Reported Medications and Allergies Home Medications Medication Instructions Recorded Confirmed Type Apixaban [Eliquis] 2.5 mg PO BID 08/30/18 11/25/18 History Diltiazem HCl [Cartia Xt] 180 mg PO DAILY 08/30/18 11/25/18 History Furosemide [Lasix] 40 mg PO DAILY 08/30/18 11/25/18 History Labetalol [Trandate] 100 mg PO Q8H 08/30/18 11/25/18 History levETIRAcetam [Keppra] 500 mg PO BID 08/30/18 11/25/18 History Primidone [Mysoline] 50 mg PO BID 11/25/18 11/25/18 History Allergies Allergy/AdvReac Type Severity Reaction Status Date / Time latex Allergy Unknown Verified 11/25/18 15:06 Sulfa (Sulfonamide Allergy Unknown Verified 11/25/18 15:06 Antibiotics) tetanus and diphtheria Allergy Unknown Verified 11/25/18 15:06 toxoids Physical Exam Vitals: Vital Signs Temp Pulse Resp BP Pulse Ox 11/27/18 06:15 98.4 F 69 16 154/79 95 11/26/18 23:28 98.6 F 90 15 143/79 92 L 11/26/18 20:55 98.9 F 85 15 151/95 92 L 11/26/18 16:00 98.2 F 84 18 154/86 95 11/26/18 12:00 97.5 F L 88 18 135/74 95 11/26/18 08:00 98.4 F 86 18 131/27 95 Intake and Output 11/26/18 11/27/18 11/27/18 22:59 06:59 14:59 Intake Total 0 Balance 0 Intake: Oral 0 Other: Voiding Method Bedside Commode Bedside Commode # Voids 1 1 Weight 54 kg Results 11/27/18 06:30 11/27/18 06:30 CBC 11/27/18 Range/Units 06:30 WBC 5.4 (3.8-10.6) k/uL RBC 4.37 (3.80-5.40) m/uL Hgb 11.7 (11.4-16.0) gm/dL Hct 36.9 (34.0-46.0) % Plt Count 173 (150-450) k/uL Comprehensive Metabolic Panel 11/27/18 Range/Units 06:30 Sodium 138 (137-145) mmol/L Potassium 4.1 (3.5-5.1) mmol/L Chloride 110 H (98-107) mmol/L Carbon Dioxide 23 (22-30) mmol/L BUN 13 (7-17) mg/dL Creatinine 0.48 L (0.52-1.04) mg/dL Glucose 86 (74-99) mg/dL Calcium 8.9 (8.4-10.2) mg/dL Current Medications Generic Name Dose Route Start Last Admin Trade Name Freq PRN Reason Stop Dose Admin Acetaminophen 650 mg 11/25/18 16:44 Tylenol Tab PO Q6HR PRN Mild Pain or Fever > 100.5 Alprazolam 0.25 mg 11/26/18 00:30 11/26/18 17:11 Xanax PO 0.25 mg BID PRN Administration Anxiety Apixaban 2.5 mg 11/25/18 21:00 11/26/18 21:21 Eliquis PO 2.5 mg BID ROBERT Administration Diltiazem HCl 180 mg 11/26/18 09:00 11/26/18 09:40 Cardizem Cd PO 180 mg DAILY ROBERT Administration Labetalol HCl 100 mg 11/25/18 17:00 11/26/18 23:29 Trandate PO 100 mg TID ROBERT Administration Levetiracetam 500 mg 11/25/18 21:00 11/26/18 21:21 Keppra PO 500 mg BID ROBERT Administration Naloxone HCl 0.2 mg 11/25/18 16:44 Narcan IV Q2M PRN Opioid Reversal Primidone 50 mg 11/26/18 09:00 11/26/18 21:21 Mysoline PO 50 mg BID ROBERT Administration Intake and Output 11/26/18 11/27/18 11/27/18 22:59 06:59 14:59 Intake Total 0 Balance 0 Intake: Oral 0 Other: Voiding Method Bedside Commode Bedside Commode # Voids 1 1 Weight 54 kg 11/27/18 06:30 11/27/18 06:30
[2018-11-27] MEDS: levETIRAcetam 500 MG TAB PO SCH ×2 (09:05→21:18)
[2018-11-27] MEDS: LABETALOL 100 MG TAB PO SCH ×3 (09:05→23:56)
[2018-11-27] MEDS: APIXABAN 2.5 MG TABLET PO SCH ×2 (09:06→21:18)
[2018-11-27] MEDS: DILTIAZEM CD 180 MG CAP.ER.24H PO SCH (09:06)
[2018-11-27] MEDS: PRIMIDONE 50 MG TAB PO SCH ×2 (09:08→21:23)
--- NOTE | 2018-11-27 15:42 | CONS ---
CONSULTATION DATE OF SERVICE/ DICTATION: 11/27/2018 IDENTIFYING DATA: This patient is an 88-year-old female who was admitted to the hospital with a chief complaint of weakness. She was found to be in atrial fibrillation with rapid ventricular response. I am asked to consult regarding depression. HISTORY OF PRESENT ILLNESS: The patient states that over the last 2 years there has been significant change. She has suffered 2 strokes and a hemorrhagic cerebral bleed. Subsequent, she has a left- sided hemiparesis. 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 She states in 2004, 1 of her sons and this set the stage for depressive feelings as well. She finds herself excessively tearful on a regular basis and finds that she has a more pessimistic outlook. She states that she has had passive suicidal thoughts in the past, but reports she would never act on that because she has other children. She has been experiencing some intermittent anxiety. At home she will use Ativan 0.25 mg as needed. She was given Xanax here in the hospital and found that overly sedating. She reports no thoughts of harming others. She is endorsing no psychosis. There is no history of hypomanic or manic episodes. PAST PSYCHIATRIC HISTORY: No prior inpatient psychiatric care. No history of suicide attempts. During 1 of her hospitalizations, she was started on Cymbalta. It seems that it may have helped some of her mood symptoms, but caused blurred vision and other side effects that were intolerable. Subsequent to that she was fearful of starting another antidepressant. She does not work with an outpatient counselor. PAST MEDICAL HISTORY: Chronic atrial fibrillation, recent episode with rapid ventricular response, history of 2 cerebrovascular accidents. Denies cerebral hemorrhage, hypertension, hyperlipidemia. CHEMICAL DEPENDENCY HISTORY: None reported. SOCIAL HISTORY: The patient resides alone. Her son, Jimmy, who is present at bedside does check on her frequently. 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 She graduated high school and had some [employer] college credits. MENTAL STATUS EXAM: The patient is a thin female appearing her stated age. She is dressed in hospital gowns. She holds her left upper extremity in a flexed position. She is tearful throughout our interaction, but she is able to demonstrate a range of affect including appropriate use of humor and smiling. She describes her mood as being depressed and sad for her losses. She reports no acute suicidal ideation, intent, or plan. She reports no homicidal ideation, intent, or plan. She endorses no auditory visual hallucinations or any specific delusions. There is no observed evidence of psychosis. She demonstrates no tangential thinking loose associations or flight of ideas. She does not appear hypomanic or manic. In terms of cognitive performance. She is oriented to person, place. She correctly names the day of the week of the month and the year. She provides the incorrect date of the 4th rather than the . She is able to when asked to name 5 major cities and states, she names four. She was able to name the months of the year backwards. She was able to register 3/3 words and after a delay of approximately 4 minutes, she recalled all 3 words spontaneously. IMPRESSIONS: 1. Major depressive disorder, recurrent, moderate to severe, anxiety unspecified. 2. Contributing medical comorbidities, cerebral vascular accident. PLAN: The patient does not require inpatient psychiatric hospitalization. There is no imminent safety risk and she would be appropriate for outpatient counseling. I am recommending that she be started on Lexapro 5 mg daily for depressive and anxiety symptoms. I would continue the 5 mg dose for 1-2 weeks to be sure she is having no side effects and consider titrating the 10 mg daily for full affect. Both her questions and her son's questions were answered. We will follow as needed while medically admitted. She plans on following up with her primary care physician, Dr. Yeager. Her son Jimmy supports the idea of her being tried on another antidepressant. The case was discussed with the patient's current nurse. MMODL / SERAN: [id number] /
[2018-11-27] MEDS: ESCITALOPRAM 5 MG TAB PO SCH (17:55)
--- NOTE | 2018-11-28 00:05 | P.PN ---
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 Patient was trying to get into changed and slipped to the side of chair and stayed there for an hour. Patient did have some bruise on the left shoulder and arm. Patient was unable to get up due to generalized weakness and finally was able to call EMS. Patient does have a history of CVA 2. Most recent was in March 2018. Patient does have tremors of the upper and lower extremities, left side since then. Patient does take labetalol for blood pressure. Patient is also on seizure medications at home. Otherwise patient denied any recent illnesses. No fever no chills. No cough or sputum production. No dysuria or hematuria. Denied any increased urinary frequency. Denied any abdominal pain. No nausea vomiting or diarrhea. Denied any chest pain or shortness of breath or dizziness. Patient was found to be in atrial fibrillation with RVR on admission. UA negative. BUN 19 on admission 11/26/2018 Patient denied any complaints of chest pain or shortness of breath today. Heart rate is better controlled. Currently on gentle hydration. Tolerating oral diet. Otherwise patient has generalized weakness and unable to ambulate without support. PT OT will be consulted and possible rehab transfer. 11/27/2018 Patient denied any new complaints today. Patient otherwise having generalized weakness and may need rehab for the patient wishes to be discharged home. Follow with PT OT tomorrow. Heart rate is controlled with Cardizem and propanolol., As per her home dose. Cardiology recommends to continue the current management. No chest pain or shortness of breath. No nausea vomiting or diarrhea. Tolerating oral diet. Current medications reviewed. Objective - Vital Signs Vital signs: Vital Signs Temp 98.1 F 11/27/18 16:00 Pulse 80 11/27/18 16:00 Resp 18 11/27/18 16:00 BP 159/58 11/27/18 16:00 Pulse Ox 95 11/27/18 16:00 Intake & Output 11/27/18 11/27/18 11/28/18 06:59 18:59 06:59 Intake Total 720 Balance 720 Weight 54 kg Intake: Oral 720 Other: Voiding Method Bedside Commode Bedside Commode # Voids 1 1 - Exam PHYSICAL EXAMINATION: Patient is lying in the bed comfortably, no acute distress, awake alert and oriented.. HEENT: Normocephalic. Neck is supple. Pupils reactive. Nostrils clear. Oral cavity is moist. Ears reveal no drainage. Neck reveals no JVD, carotid bruits, or thyromegaly. CHEST EXAMINATION: Trachea is central. Symmetrical expansion. Bibasilar diminished air entry. Lung reynolds clear to auscultation and percussion. CARDIAC: Normal S1, S2 with no gallops. No murmurs . Irregularly irregular rhythm. ABDOMEN: Soft. Bowel sounds normal. No organomegaly. No abdominal bruits. Extremities: reveal no edema. No clubbing or cyanosis Neurologically awake, alert, oriented x3 . Left-sided weakness and tremors.. Skin: No rash or skin lesions. Psychiatric: Coperative. Nonsuicidal Musculoskeletal: No joint swelling or deformity. Normal range of motion. - Labs CBC & Chem 7: 11/27/18 06:30 11/27/18 06:30 Labs: Abnormal Lab Results - Last 24 Hours (Table) 11/27/18 11/27/18 Range/Units 06:30 06:30 RDW 16.7 H (11.5-15.5) % Chloride 110 H (98-107) mmol/L Creatinine 0.48 L (0.52-1.04) mg/dL Microbiology - Last 24 Hours (Table) 11/25/18 14:16 Blood Culture - Preliminary Blood No Growth after 48 hours 11/25/18 15:51 Urine Culture - Final Urine,Voided Assessment and Plan Assessment: Generalized weakness and fall bruising on the left shoulder and hand. Patient controlled. Atrial fibrillation with rapid ventricular rate. Rate controlled now. Chronic atrial fibrillation on anticoagulation with Eliquis Mild dehydration History of CVA with left-sided weakness and tremors History of hemorrhagic CVA Hypertension Hyponatremia DVT prophylaxis. Patient is already on full anticoagulation Plan: Patient will be continued on telemetry monitoring. Patient was given fluid bolus and continue with normal saline at 75 mL per hour and monitor fluid status closely. Continue with home blood pressure medications including propranolol. Heart rate is controlled now. Started back on Eliquis and antiepileptic medications which she is on at home. Cardiology is following.. Prognosis is guarded. Consulted PTOT. Time with Patient: Greater than 30
[2018-11-28] MEDS: LABETALOL 100 MG TAB PO SCH ×3 (09:06→21:31)
[2018-11-28] MEDS: PRIMIDONE 50 MG TAB PO SCH ×2 (09:06→21:26)
[2018-11-28] MEDS: DILTIAZEM CD 180 MG CAP.ER.24H PO SCH (09:06)
[2018-11-28] MEDS: ESCITALOPRAM 5 MG TAB PO SCH (09:06)
[2018-11-28] MEDS: APIXABAN 2.5 MG TABLET PO SCH ×2 (09:06→21:31)
[2018-11-28] MEDS: levETIRAcetam 500 MG TAB PO SCH ×2 (09:06→21:31)
--- NOTE | 2018-11-28 18:55 | P.PN ---
Subjective Patient is doing well. She is sitting up in a chair. She denies any dizziness lightheadedness palpitations chest pain. She has been ambulating around in the room as well as went to the bathroom without any problems Blood pressure 136/67 mmHg, heart rates in the 60s Afebrile Breath sounds are clear no rhonchi no crackles Normal heart sounds, rate controlled irregular Abdomen is soft Extremities warm no edema impression Atrial fibrillation with RVR, likely persistent Rates are well controlled on diltiazem 180 mg by mouth daily and labetalol 100 mg 3 times a day Currently on apixaban 2.5 mg twice daily Suggest Continue current medications and patient may go home from a cardiac standpoint Objective - Vital Signs Vital signs: Vital Signs Temp 98.7 F 11/28/18 15:00 Pulse 68 11/28/18 16:00 Resp 14 11/28/18 16:00 BP 157/77 11/28/18 15:00 Pulse Ox 95 11/28/18 15:00 Intake & Output 11/27/18 11/28/18 11/28/18 18:59 06:59 18:59 Intake Total 720 570 Output Total 700 Balance 720 -700 570 Intake: Oral 720 570 Output: Urine 700 Other: Voiding Method Bedside Commode Bedside Commode Bedside Commode # Voids 1 1 0 # Bowel Movements 0 - Labs CBC & Chem 7: 11/27/18 06:30 11/27/18 06:30 Labs: Microbiology - Last 24 Hours (Table) 11/25/18 14:16 Blood Culture - Preliminary Blood No Growth after 72 hours
[2018-11-29] MEDS: APIXABAN 2.5 MG TABLET PO SCH ×2 (09:02→21:15)
[2018-11-29] MEDS: LABETALOL 100 MG TAB PO SCH ×3 (09:02→21:15)
[2018-11-29] MEDS: DILTIAZEM CD 180 MG CAP.ER.24H PO SCH (09:03)
[2018-11-29] MEDS: levETIRAcetam 500 MG TAB PO SCH ×2 (09:03→21:15)
[2018-11-29] MEDS: ESCITALOPRAM 5 MG TAB PO SCH (09:03)
[2018-11-29] MEDS: PRIMIDONE 50 MG TAB PO SCH ×2 (09:03→21:16)
--- NOTE | 2018-11-30 00:38 | P.PN ---
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 Patient was trying to get into changed and slipped to the side of chair and stayed there for an hour. Patient did have some bruise on the left shoulder and arm. Patient was unable to get up due to generalized weakness and finally was able to call EMS. Patient does have a history of CVA 2. Most recent was in March 2018. Patient does have tremors of the upper and lower extremities, left side since then. Patient does take labetalol for blood pressure. Patient is also on seizure medications at home. Otherwise patient denied any recent illnesses. No fever no chills. No cough or sputum production. No dysuria or hematuria. Denied any increased urinary frequency. Denied any abdominal pain. No nausea vomiting or diarrhea. Denied any chest pain or shortness of breath or dizziness. Patient was found to be in atrial fibrillation with RVR on admission. UA negative. BUN 19 on admission 11/26/2018 Patient denied any complaints of chest pain or shortness of breath today. Heart rate is better controlled. Currently on gentle hydration. Tolerating oral diet. Otherwise patient has generalized weakness and unable to ambulate without support. PT OT will be consulted and possible rehab transfer. 11/27/2018 Patient denied any new complaints today. Patient otherwise having generalized weakness and may need rehab for the patient wishes to be discharged home. Follow with PT OT tomorrow. Heart rate is controlled with Cardizem and propanolol., As per her home dose. Cardiology recommends to continue the current management. No chest pain or shortness of breath. No nausea vomiting or diarrhea. Tolerating oral diet. 11/28/2018 Patient says that she is feeling better. No commerce of chest pain or shortness of breath. Patient does have generalized weakness and left-sided upper and lower extremity tremor from previous CVA. PT OT recommends subacute rehab. Otherwise heart rate is controlled. sheep farm worker is following for rehab placement. Patient is otherwise tolerating oral diet. No fever no chills. No nausea vomiting or abdominal pain. Current medications reviewed. Objective - Vital Signs Vital signs: Vital Signs Temp 98.7 F 11/28/18 15:00 Pulse 71 11/28/18 21:32 Resp 18 11/28/18 21:32 BP 144/73 11/28/18 21:32 Pulse Ox 95 11/28/18 21:32 Intake & Output 11/28/18 11/28/18 11/29/18 06:59 18:59 06:59 Intake Total 570 Output Total 700 Balance -700 570 Intake: Oral 570 Output: Urine 700 Other: Voiding Method Bedside Commode Bedside Commode # Voids 1 0 # Bowel Movements 0 - Exam PHYSICAL EXAMINATION: Patient is lying in the bed comfortably, no acute distress, awake alert and oriented.. HEENT: Normocephalic. Neck is supple. Pupils reactive. Nostrils clear. Oral cavity is moist. Ears reveal no drainage. Neck reveals no JVD, carotid bruits, or thyromegaly. CHEST EXAMINATION: Trachea is central. Symmetrical expansion. Bilateral improved air entry. Lung reynolds clear to auscultation and percussion. CARDIAC: Normal S1, S2 with no gallops. No murmurs . Irregularly irregular rh ythm. ABDOMEN: Soft. Bowel sounds normal. No organomegaly. No abdominal bruits. Extremities: reveal no edema. No clubbing or cyanosis Neurologically awake, alert, oriented x3 . Left-sided weakness and tremors.. Skin: No rash or skin lesions. Psychiatric: Coperative. Nonsuicidal Musculoskeletal: No joint swelling or deformity. Normal range of motion. - Labs CBC & Chem 7: 11/27/18 06:30 11/27/18 06:30 Labs: Microbiology - Last 24 Hours (Table) 11/25/18 14:16 Blood Culture - Preliminary Blood No Growth after 72 hours Assessment and Plan Assessment: Generalized weakness and fall bruising on the left shoulder and hand. Pain controlled. Atrial fibrillation with rapid ventricular rate. Rate controlled now. Chronic atrial fibrillation on anticoagulation with Eliquis Mild dehydration History of CVA with left-sided weakness and tremors History of hemorrhagic CVA Hypertension Hyponatremia DVT prophylaxis. Patient is already on full anticoagulation Plan: Patient will be continued on telemetry monitoring. Patient was given fluid bolus and continued with normal saline at 75 mL per hour. Currently tolerating oral diet and IV fluids have been discontinued. Continue with home blood pressure medications including propranolol and Cardizem. Heart rate is controlled now. Started back on Eliquis and antiepileptic medications which she is on at home. Cardiology is following.. Prognosis is guarded. Consulted PTOT, recommends rehab transfer. Time with Patient: Greater than 30
--- NOTE | 2018-11-30 00:39 | P.PN ---
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 Patient was trying to get into changed and slipped to the side of chair and stayed there for an hour. Patient did have some bruise on the left shoulder and arm. Patient was unable to get up due to generalized weakness and finally was able to call EMS. Patient does have a history of CVA 2. Most recent was in March 2018. Patient does have tremors of the upper and lower extremities, left side since then. Patient does take labetalol for blood pressure. Patient is also on seizure medications at home. Otherwise patient denied any recent illnesses. No fever no chills. No cough or sputum production. No dysuria or hematuria. Denied any increased urinary frequency. Denied any abdominal pain. No nausea vomiting or diarrhea. Denied any chest pain or shortness of breath or dizziness. Patient was found to be in atrial fibrillation with RVR on admission. UA negative. BUN 19 on admission 11/26/2018 Patient denied any complaints of chest pain or shortness of breath today. Heart rate is better controlled. Currently on gentle hydration. Tolerating oral diet. Otherwise patient has generalized weakness and unable to ambulate without support. PT OT will be consulted and possible rehab transfer. 11/27/2018 Patient denied any new complaints today. Patient otherwise having generalized weakness and may need rehab for the patient wishes to be discharged home. Follow with PT OT tomorrow. Heart rate is controlled with Cardizem and propanolol., As per her home dose. Cardiology recommends to continue the current management. No chest pain or shortness of breath. No nausea vomiting or diarrhea. Tolerating oral diet. 11/28/2018 Patient says that she is feeling better. No commerce of chest pain or shortness of breath. Patient does have generalized weakness and left-sided upper and lower extremity tremor from previous CVA. PT OT recommends subacute rehab. Otherwise heart rate is controlled. hold worker is following for rehab placement. Patient is otherwise tolerating oral diet. No fever no chills. No nausea vomiting or abdominal pain. 11/29/2018 Patient denied any new complaints today. Sitting in the chair comfortably. Participating in physical therapy. Awaiting placement to rehab. Heart rate is controlled. Tolerating oral diet. No chest pain or shortness of breath. Current medications reviewed. Objective - Vital Signs Vital signs: Vital Signs Temp 98 F 11/29/18 21:00 Pulse 111 H 11/29/18 21:00 Resp 18 11/29/18 21:00 BP 163/71 11/29/18 21:00 Pulse Ox 92 L 11/29/18 21:00 Intake & Output 11/29/18 11/29/18 11/30/18 06:59 18:59 06:59 Intake Total 360 Balance 360 Intake: Oral 360 Other: Voiding Method Bedside Commode Bedside Commode # Voids 1 3 1 - Exam PHYSICAL EXAMINATION: Patient is lying in the bed comfortably, no acute distress, awake alert and oriented.. HEENT: Normocephalic. Neck is supple. Pupils reactive. Nostrils clear. Oral cavity is moist. Ears reveal no drainage. Neck reveals no JVD, carotid bruits, or thyromegaly. CHEST EXAMINATION: Trachea is central. Symmetrical expansion. Bilateral improved air entry. Lung reynolds clear to auscultation and percussion. CARDIAC: Normal S1, S2 with no gallops. No murmurs . Irregularly irregular rhythm. ABDOMEN: Soft. Bowel sounds normal. No organomegaly. No abdominal bruits. Extremities: reveal no edema. No clubbing or cyanosis Neurologically awake, alert, oriented x3 . Left-sided weakness and tremors.. Skin: No rash or skin lesions. Psychiatric: Coperative. Nonsuicidal Musculoskeletal: No joint swelling or deformity. Normal range of motion. - Labs CBC & Chem 7: 11/27/18 06:30 11/27/18 06:30 Labs: Microbiology - Last 24 Hours (Table) 11/25/18 14:16 Blood Culture - Preliminary Blood No Growth after 96 hours Assessment and Plan Assessment: Generalized weakness and fall bruising on the left shoulder and hand. Pain controlled. Atrial fibrillation with rapid ventricular rate. Rate controlled now. Chronic atrial fibrillation on anticoagulation with Eliquis Mild dehydration History of CVA with left-sided weakness and tremors History of hemorrhagic CVA Hypertension Hyponatremia DVT prophylaxis. Patient is already on full anticoagulation Plan: Patient will be continued on telemetry monitoring. Patient was given fluid bolus and continued with normal saline at 75 mL per hour. Currently tolerating oral diet and IV fluids have been discontinued. Continue with home blood pressure medications including propranolol and Cardizem. Heart rate is controlled now. Started back on Eliquis and antiepileptic medications which she is on at home. Cardiology is following.. Prognosis is guarded. Consulted PTOT, recommends rehab transfer.
[2018-11-30] MEDS: APIXABAN 2.5 MG TABLET PO SCH ×2 (08:58→21:01)
[2018-11-30] MEDS: DILTIAZEM CD 180 MG CAP.ER.24H PO SCH (08:58)
[2018-11-30] MEDS: ESCITALOPRAM 5 MG TAB PO SCH (08:58)
[2018-11-30] MEDS: LABETALOL 100 MG TAB PO SCH ×3 (08:58→21:01)
[2018-11-30] MEDS: levETIRAcetam 500 MG TAB PO SCH ×2 (08:58→21:01)
[2018-11-30] MEDS: PRIMIDONE 50 MG TAB PO SCH ×2 (08:59→21:02)
--- NOTE | 2018-11-30 13:05 | P.PN ---
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 Patient was trying to get into changed and slipped to the side of chair and stayed there for an hour. Patient did have some bruise on the left shoulder and arm. Patient was unable to get up due to generalized weakness and finally was able to call EMS. Patient does have a history of CVA 2. Most recent was in March 2018. Patient does have tremors of the upper and lower extremities, left side since then. Patient does take labetalol for blood pressure. Patient is also on seizure medications at home. Otherwise patient denied any recent illnesses. No fever no chills. No cough or sputum production. No dysuria or hematuria. Denied any increased urinary frequency. Denied any abdominal pain. No nausea vomiting or diarrhea. Denied any chest pain or shortness of breath or dizziness. Patient was found to be in atrial fibrillation with RVR on admission. UA negative. BUN 19 on admission 11/26/2018 Patient denied any complaints of chest pain or shortness of breath today. Heart rate is better controlled. Currently on gentle hydration. Tolerating oral diet. Otherwise patient has generalized weakness and unable to ambulate without support. PT OT will be consulted and possible rehab transfer. 11/27/2018 Patient denied any new complaints today. Patient otherwise having generalized weakness and may need rehab for the patient wishes to be discharged home. Follow with PT OT tomorrow. Heart rate is controlled with Cardizem and propanolol., As per her home dose. Cardiology recommends to continue the current management. No chest pain or shortness of breath. No nausea vomiting or diarrhea. Tolerating oral diet. 11/28/2018 Patient says that she is feeling better. No commerce of chest pain or shortness of breath. Patient does have generalized weakness and left-sided upper and lower extremity tremor from previous CVA. PT OT recommends subacute rehab. Otherwise heart rate is controlled. stock worker and deliverer is following for rehab place ment. Patient is otherwise tolerating oral diet. No fever no chills. No nausea vomiting or abdominal pain. 11/29/2018 Patient denied any new complaints today. Sitting in the chair comfortably. Pa rticipating in physical therapy. Awaiting placement to rehab. Heart rate is controlled. Tolerating oral diet. No chest pain or shortness of breath. 11/30/2018 No overnight events patient is clinically doing well awaiting disposition to subacute rehabilitation. Constitutional: Denied any fatigue denied any fever. Cardio vascular: denied any chest pain, palpitations Gastrointestinal denied any nausea vomiting Pulmonary: Denied any shortness of breath cough Neurologic denied any new focal deficits All inpatient medications were reviewed and appropriate changes in these medications as dictated in the interval history and assessment and plan. Objective - Vital Signs Vital signs: Vital Signs Temp 97.9 F 11/30/18 11:40 Pulse 68 11/30/18 11:40 Resp 16 11/30/18 11:40 BP 150/74 11/30/18 11:40 Pulse Ox 97 11/30/18 11:40 Intake & Output 11/29/18 11/30/18 11/30/18 18:59 06:59 18:59 Other: Voiding Method Bedside Commode Bedside Commode Toilet Bedside Commode # Voids 3 1 - Exam PHYSICAL EXAMINATION: GENERAL: The patient is alert and oriented x3, not in any acute distress. Well developed, well nourished. HEENT: Pupils are round and equally reacting to light. EOMI. No scleral icterus. No conjunctival pallor. Normocephalic, atraumatic. No pharyngeal erythema. No thyromegaly. CARDIOVASCULAR: S1 and S2 present. No murmurs, rubs, or gallops. PULMONARY: Chest is clear to auscultation, no wheezing or crackles. ABDOMEN: Soft, nontender, nondistended, normoactive bowel sounds. No palpable organomegaly. MUSCULOSKELETAL: No joint swelling or deformity. EXTREMITIES: No cyanosis, clubbing, or pedal edema. NEUROLOGICAL: Gross neurological examination did not reveal any focal deficits. SKIN: No rashes. - Labs CBC & Chem 7: 11/27/18 06:30 11/27/18 06:30 Labs: Microbiology - Last 24 Hours (Table) 11/25/18 14:16 Blood Culture - Preliminary Blood No Growth after 96 hours Assessment and Plan Plan: Generalized weakness and fall bruising on the left shoulder and hand. Pain controlled. Atrial fibrillation with rapid ventricular rate. Rate controlled now. Chronic atrial fibrillation on anticoagulation with Eliquis Mild dehydration History of CVA with left-sided weakness and tremors History of hemorrhagic CVA Hypertension Hyponatremia DVT prophylaxis. Patient is already on full anticoagulation Plan: Patient will be continued on telemetry monitoring. Patient was given fluid bolus and continued with normal saline at 75 mL per hour. Currently tolerating oral diet and IV fluids have been discontinued. Continue with home blood pressure medications including propranolol and Cardizem. Heart rate is controlled now. Started back on Eliquis and antiepileptic medications which she is on at home. Cardiology is following.. Prognosis is guarded. Consulted PTOT, recommends rehab transfer. Patient will be discharged to subacute rehab tomorrow morning
[2018-12-01] MEDS: PRIMIDONE 50 MG TAB PO SCH (07:38)
[2018-12-01] MEDS: ESCITALOPRAM 5 MG TAB PO SCH (07:57)
[2018-12-01] MEDS: APIXABAN 2.5 MG TABLET PO SCH (07:57)
[2018-12-01] MEDS: DILTIAZEM CD 180 MG CAP.ER.24H PO SCH (07:57)
[2018-12-01] MEDS: levETIRAcetam 500 MG TAB PO SCH (07:58)
[2018-12-01] MEDS: LABETALOL 100 MG TAB PO SCH (07:58)
[2018-12-01 12:30] VITALS: BP 160/88; PULSE 68; RESP 16; TEMP 97.3
--- NOTE | 2018-12-01 14:48 | XR ---
EXAMINATION TYPE: XR chest 1V DATE OF EXAM: 12/01/2018 COMPARISON: Prior chest x-ray 11/25/[address] 11/25/2018 HISTORY: Abnormal chest x-ray, extended-care facility clearance, rule out congestive heart failure TECHNIQUE: Single frontal view of the chest is obtained. FINDINGS: The heart is enlarged. There is blunting the costophrenic angles. Interstitium and central vascularity is prominent. No pneumothorax, biapical pleural thickening is again seen. IMPRESSION: Correlate for pulmonary venous hypertension and interstitial edema, underlying interstit ial lung disease is present. There may be underlying pulmonary artery hypertension.
[2018-12-01] MEDS ORDERED: FUROSEMIDE 10 MG/ML 4 ML VIAL IV STA (15:11)
--- NOTE | 2018-12-01 15:16 | P.DS ---
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 Patient was trying to get into changed and slipped to the side of chair and stayed there for an hour. Patient did have some bruise on the left shoulder and arm. Patient was unable to get up due to generalized weakness and finally was able to call EMS. Patient does have a history of CVA 2. Most recent was in March 2018. Patient does have tremors of the upper and lower extremities, left side since then. Patient does take labetalol for blood pressure. Patient is also on seizure medications at home. Otherwise patient denied any recent illnesses. No fever no chills. No cough or sputum production. No dysuria or hematuria. Denied any increased urinary frequency. Denied any abdominal pain. No nausea vomiting or diarrhea. Denied any chest pain or shortness of breath or dizziness. Patient was found to be in atrial fibrillation with RVR on admission. UA negative. BUN 19 on admission 11/26/2018 Patient denied any complaints of chest pain or shortness of breath today. Heart rate is better controlled. Currently on gentle hydration. Tolerating oral diet. Otherwise patient has generalized weakness and unable to ambulate without support. PT OT will be consulted and possible rehab transfer. 11/27/2018 Patient denied any new complaints today. Patient otherwise having generalized weakness and may need rehab for the patient wishes to be discharged home. Follow with PT OT tomorrow. Heart rate is controlled with Cardizem and propanolol., As per her home dose. Cardiology recommends to continue the current management. No chest pain or shortness of breath. No nausea vomiting or diarrhea. Tolerating oral diet. 11/28/2018 Patient says that she is feeling better. No commerce of chest pain or shortness of breath. Patient does have generalized weakness and left-sided upper and lower extremity tremor from previous CVA. PT OT recommends subacute rehab. Otherwise heart rate is controlled. 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 Patient is otherwise tolerating oral diet. No fever no chills. No nausea vomiting or abdominal pain. 11/29/2018 Patient denied any new complaints today. Sitting in the chair comfortably. Participating in physical therapy. Awaiting placement to rehab. Heart rate is controlled. Tolerating oral diet. No chest pain or shortness of breath. 11/30/2018 No overnight events patient is clinically doing well awaiting disposition to subacute rehabilitation. 12/01/2018 Patient is clinically doing well wanted to be discharged to subacute rehab but the her saturations have come down because of which are pending a chest x-ray patient's the Lasix is being held and patient appears to have some pulmonary edema we'll give her a dose of IV Lasix before discharge and patient will be resumed on her home dose of Lasix and will be discharged today to subacute r ehabilitation. There is no obvious JVD has minimal bibasilar crackles on exam PHYSICAL EXAMINATION: GENERAL: The patient is alert and oriented x3, not in any acute distress. Well developed, well nourished. HEENT: Pupils are round and equally reacting to light. EOMI. No scleral icterus. No conjunctival pallor. Normocephalic, atraumatic. No pharyngeal erythema. No thyromegaly. CARDIOVASCULAR: S1 and S2 present. No murmurs, rubs, or gallops. PULMONARY: Chest is clear to auscultation, no wheezing or crackles. ABDOMEN: Soft, nontender, nondistended, normoactive bowel sounds. No palpable o rganomegaly. MUSCULOSKELETAL: No joint swelling or deformity. EXTREMITIES: No cyanosis, clubbing, or pedal edema. NEUROLOGICAL: Gross neurological examination did not reveal any focal deficits. SKIN: No rashes. Assessment and Plan Plan: Generalized weakness and fall bruising on the left shoulder and hand. Pain controlled. Atrial fibrillation with rapid ventricular rate. Rate controlled now. Congestive heart failure probable chronic diastolic dysfunction with mild acute exacerbation patient was given Lasix today Chronic atrial fibrillation on anticoagulation with Eliquis History of CVA with left-sided weakness and tremors History of hemorrhagic CVA Hypertension Hyponatremia Patient Condition at Discharge: Stable Plan - Discharge Summary Discharge Rx Participant: No New Discharge Prescriptions: New Escitalopram [Lexapro] 5 mg PO DAILY #30 tab Continue levETIRAcetam [Keppra] 500 mg PO BID Labetalol [Trandate] 100 mg PO Q8H Diltiazem HCl [Cartia Xt] 180 mg PO DAILY Apixaban [Eliquis] 2.5 mg PO BID Primidone [Mysoline] 50 mg PO BID Changed Furosemide [Lasix] 40 mg PO DAILY #0 Discharge Medication List Apixaban [Eliquis] 2.5 mg PO BID 08/30/18 [History] Diltiazem HCl [Cartia Xt] 180 mg PO DAILY 08/30/18 [History] Labetalol [Trandate] 100 mg PO Q8H 08/30/18 [History] levETIRAcetam [Keppra] 500 mg PO BID 08/30/18 [History] Primidone [Mysoline] 50 mg PO BID 11/25/18 [History] Escitalopram [Lexapro] 5 mg PO DAILY #30 tab 11/28/18 [Rx] Furosemide [Lasix] 40 mg PO DAILY #0 12/01/18 [Rx] Follow up Appointment(s)/Referral(s): Jarret Jacobsen MD [STAFF PHYSICIAN] - 1 Week Timmy Yeager MD [Primary Care Provider] - 1-2 days Activity/Diet/Wound Care/Special Instructions: ecf Discharge Disposition: TRANSFER TO SNF/ECF
== END 2018-12-01 16:15 | DRG 308 ==
LOC: EC 14:07 → 3SCARD 16:45 → OBSVTOIN 11-28 11:50 → 3NMEDONC 11-28 21:49
PROVIDERS: ADMIT Internal Medicine; ATTEND Internal Medicine
DX: I48.1 Persistent atrial fibrillation (principal); I50.33 Acute on chronic diastolic (congestive) heart failure; I69.354 Hemiplegia and hemiparesis following cerebral infarction affecting left non-dominant side; E87.1 Hypo-osmolality and hyponatremia; F33.2 Major depressive disorder, recurrent severe without psychotic features; E86.0 Dehydration; I11.0 Hypertensive heart disease with heart failure; J44.9 Chronic obstructive pulmonary disease, unspecified; F41.9 Anxiety disorder, unspecified; R53.1 Weakness; S40.012A Contusion of left shoulder, initial encounter; S40.022A Contusion of left upper arm, initial encounter; E78.5 Hyperlipidemia, unspecified; R25.1 Tremor, unspecified; Z79.01 Long term (current) use of anticoagulants; Z79.899 Other long term (current) drug therapy; Z98.891 History of uterine scar from previous surgery; Z90.710 Acquired absence of both cervix and uterus; Z88.2 Allergy status to sulfonamides; Z88.7 Allergy status to serum and vaccine; Z91.040 Latex allergy status; W06.XXXA Fall from bed, initial encounter; Y92.009 Unspecified place in unspecified non-institutional (private) residence as the place of occurrence of the external cause
CPT/HCPCS: 36415; 70450; 71045; 71046; 72125; 80048; 80053; 81003; 82550; 83605; 83735; 84443; 84484; 85025; 85610; 85730; 87040; 87086; 96361; 96374; 99285